=== PATIENT | male | born 1970 | race Caucasian/White ===

== ENCOUNTER 2016-08-02 11:36 | Day surgery (SDC) | payer MEDICARE, OTHER ==
[~2016-08-02] VITALS: Ht 185.4 cm; Wt 125.5 kg
[~2016-08-02 11:36] MED LIST: BAYER CHEWABLE81 MG PO; BUMEX 1 MG TAB1 MG PO; BYSTOLIC2.5 MG PO; CELEXA20 MG PO; COUMADIN7.5 MG PO; CYCLOBENZAPRINE10 MG PO; ELIQUIS5 MG PO; FISH OIL 1,0001 CA1 PO; HEMOCYTE PLUS C1 CAP PO; HYDROCODONE-APA1 TAB PO; METOLAZONE2.5 MG PO; NIASPAN500 MG PO; NORVASC10 MG PO; PRILOSEC20 MG PO; PRINIVIL20 MG PO; REGLAN10 MG PO; RENAGEL800 MG PO; TRIGLIDE160 MG PO; XANAX1 MG PO; ZEBETA5 MG PO
[2016-08-02] MEDS ORDERED: ZESTRIL40 MG PO (12:16)
[2016-08-02 12:24] VITALS: Ht 185.4 cm; Wt 125.5 kg
[2016-08-02 12:51] LABS: EOSINOPHILS 4.9 % (0-7); HEMATOCRIT 33.8 % (42.0-54.0); HEMOGLOBIN 11.4 g/dL (13.5-17.5); IMMATURE GRANULOCYTES 0.2 % (0-5); MCHC 33.7 g/dL (31.0-37.0); MEAN PLATELET VOLUME 10.3 fL (7.4-10.4); MONOCYTES 7.6 % (2-11); NEUTROPHILS 67.3 % (40-80); RBC 3.93 10x6/uL (4.20-6.10); RDW 15.1 % (11.5-14.5); WBC 5.9 10x3/uL (4.8-10.8)
[2016-08-02 12:54] LABS: ANION GAP 14.6 mmol/L (8-16); CALCIUM 9.1 mg/dL (8.5-10.1); CARBON DIOXIDE 29.1 mmol/L (21.0-32.0); CREATININE - SERUM 7.4 mg/dL (0.6-1.3); POTASSIUM - SERUM 3.7 mmol/L (3.5-5.1)
[2016-08-02 13:13] LABS: PLATELET COUNT 146 10x3/uL (130-400)
[2016-08-02 13:21] LABS: APTT 32.3 SECONDS (22.8-39.4); INR 1.06 (0.85-1.17); PROTIME 13.6 SECONDS (11.6-15.0)
[2016-08-02 15:03] LABS: T4 THYROXIN - FREE 0.96 ng/dL (0.76-1.46); THYROID STIMULATING HORMONE 2.34 uIU/mL (0.36-3.74)
--- NOTE | 2016-08-03 18:05 | OP ---
PATIENT NAME: SHILA JUARES MEDICAL RECORD: [id number] :66 [facility] ADMISSION DATE: SURGEON: LUC DAHL MD DATE OF OPERATION: 08/02/2016 PROCEDURE: EGD with biopsy. REFERRING PHYSICIAN: Dr. Ector Johnson. FISHERIES TECHNICIAN: Sd Farley MD. INDICATIONS: Mr. Juares is a pleasant 46-year-old gentleman with a history of obstructive sleep apnea, chronic kidney disease and iron deficiency anemia, who presents for outpatient EGD. He has had symptoms of nausea and belching. He notes the symptoms occur concomitant with his use of Nowata and when he does not take his Nowata, the symptoms uriah. He presents for outpatient EGD. PREMEDICATIONS: Total IV anesthesia (chronic kidney disease, obstructive sleep apnea) propofol 200 mg. INSTRUMENT: Olympus video gastroscope. PROCEDURE AND FINDINGS: After receiving informed consent, Mr. Juares's posterior pharynx was anesthetized with Cetacaine spray. He was placed in left lateral decubitus position, sedated as per anesthesia. After achieving adequate level of sedation, gastroscope was introduced per orally and advanced into the duodenum without difficulty. The esophageal mucosa was without erythema, ulcers, strictures or masses, appeared normal down the GE junction. Small sliding type hiatal hernia was present. Gastric mucosa was notable for mild prepyloric erythema and antral biopsies were obtained to rule out Helicobacter pylori. No lesions were seen in the body of the stomach or in the cardia or fundus. Pylorus was patent and competent. Duodenal mucosa was without erythema or ulcers, appeared normal through the second portion. Gastroscope was then withdrawn. Mr. Juares tolerated the procedure well, no immediate complications. ASSESSMENT: 1. Small sliding type hiatal hernia. 2. Mild gastritis. 3. Symptoms of belching and nausea concomitant with Nowata use, may be experiencing intermittent delaying gastric emptying secondary to narcotics and secondary to pain medication. RECOMMENDATIONS: 1. Check TSH and T4 level. 2. Gastric emptying scan. 3. Continue omeprazole 20 mg twice a day. TRANSINT:[id number] Voice Confirmation ID: [id number] DOCUMENT ID: [id number] OPERATIVE REPORT [id number] SHILA JUARES LUC DAHL MD at 1805 CC: SD FARLEY MD and ECTOR JOHNSON MD [id number] DICTATION DATE: 08/02/16 1335 PROPERTY DEVELOPER: 08/02/16 1408 [facility] [place] 08/02/16 [id number] [place] [address]
== END 2016-08-02 14:30 | disposition home or self-care (01) ==
LOC: D.OPS 11:36
PROVIDERS: Anesthesiology; Internal Medicine Gastroenterology
DX: K44.9 Diaphragmatic hernia without obstruction or gangrene (principal); K29.50 Unspecified chronic gastritis without bleeding; K29.80 Duodenitis without bleeding; G47.33 Obstructive sleep apnea (adult) (pediatric); N18.9 Chronic kidney disease, unspecified; D50.9 Iron deficiency anemia, unspecified; Z79.891 Long term (current) use of opiate analgesic

== ENCOUNTER 2016-08-21 12:51 | Outpatient (CLI) | payer MEDICARE, OTHER ==
[2016-08-02 12:24] VITALS: BMI 36.4
[~2016-08-21 12:51] MED LIST changes: +ZESTRIL40 MG PO
== END 2016-08-21 23:59 | disposition home or self-care (01) ==
LOC: D.NM 12:51
DX: R14.2 Eructation (principal)

== ENCOUNTER 2017-04-10 11:24 | Outpatient (CLI) | payer OTHER, MEDICARE ==
--- NOTE | ~2017-04-10 | HEMODYNAMI ---
PATIENT:SHILA JUARES MEDICAL RECORD: [id number] : 66 LOCATION:[facility] ADMISSION DATE: 04/10/17 Generatedon:04/10/201714:42 Patient name: SHILA JUARES Patient #: [id number] SSN: : 1970 Date of study: 04/10/2017 Page: Of Hemodynamic Procedure Report Patient Data Patient Demographics Procedure consent was obtained First Name: SHILA Gender: Male Last Name: BLANQUITA : 1970 Middle Initial: LESLEY Age: 46 year(s) Patient #: [id number] Race: Unknown Additional ID: [id number] Contact details Address: [address] [address] State: [place] City: [place] Zip code: [address] Admission Admission Data Admission Date: 04/10/2017 Admission Time: 11:24 Procedure Procedure Types Cath Procedure Diagnostic Procedure LHC LHC w/Coronaries PCI Procedure Coronary Stent Initial Miscellaneous Procedures Moderate Sedation up to 15 minutes Procedure Description Procedure Date Procedure Date: 04/10/2017 Procedure Start Time: 14:19 Procedure End Time: 14:39 Procedure Staff Name Function Bryan Juárez RT Monitor Cl Castaneda RN Lunchroom Supervisor Yrn Beltran MD Performing Physician Collins Hsu RN Nurse Meena Baez RT Scrub Procedure Data Cath Procedure Fluoroscopy Diagnostic fluoroscopy Total fluoroscopy Time: 3.3 time: 3.3 min min Diagnostic fluoroscopy Total fluoroscopy dose: dose: 1125 mGy 1125 mGy Contrast Material Contrast Material Type Amount (ml) Isovue 300 103 Entry Location Entry Primary Successful Side Size Upsize Upsize Entry Closure Succes sful Closure Location (Fr) 1 (Fr) 2 (Fr) Remarks Device Remarks Femoral Right 5 Fr 6 Fr artery Short Estimated blood loss: 10 ml Diagnostic catheters Device Type Used For End Catheter Placement Cordis 5Fr JL 4.0 Procedure Catheter (MP) Cordis 5Fr 3DRC Catheter Procedure (MP) Cordis 5Fr Pigtail Procedure Catheter (MP) Procedure Complications No complications Procedure Medications Medication Administration Route Dosage 0.9% NaCl I.V. 100 ml/hr Oxygen NC 2 l/min Heparin Flush Bag added to field 2 bags (1000units/500ml NS) Lidocaine 2% added to field 20 Versed I.V. 2 mg Fentanyl I.V. 100 mcg Versed I.V. 2 mg Fentanyl I.V. 50 mcg Heparin Bolus I.V. 5000 units Integrilin (Bolus I.V. 11.3 ml 2mg/ml) Plavix P.O. 600 mg Integrilin (Bolus wasted 8.7 ml 2mg/ml) Integrilin (Bolus wasted 8.7 ml 2mg/ml) Hemodynamics Rest Heart Rate: 69 (bpm) Pressure Samples Time Site Value (mmHg) Purpose Heart Use Rate(bpm) 14:20 AO 153/94(118) Snapshot 69 14:24 LV 135/6,13 Snapshot 86 14:25 LV 146/9,13 Pullback 85 14:25 AO 152/95(120) Pullback 85 Gradients Valve Time Site 1 Site 2 Mean SEP/DFP Peak To Heart Use (mmHg) (sec/min) Peak Rate (mmHg) (bpm) Aortic 14:25 LV AO 0 85 146/9,13 152/95(120) Calculations Valve P-P Mean Valve Index Valve Source Name Gradient Area Flow (cm2) Aortic 0 0 Snapshots Pre Cath Intra NCS Post Cath Vital Signs Time Heart Resp SPO2 etCO2 NIBP (mmHg) Rhythm Pain Sedation Rate (ipm) (%) (mmHg) Status Level (bpm) 14:00:06 64 14 100 33.2 158/97(129) NSR 0 (11) 10(A) , No pain 14:04:53 63 16 100 29.4 150/102(128) NSR 0 (11) 10(A) , No pain 14:09:38 74 20 100 31.7 151/98(118) NSR 0 (11) 10(A) , No pain 14:14:21 64 19 100 32.4 143/94(117) NSR 0 (11) 10(A) , No pain 14:19:01 78 21 100 25.6 143/94(124) NSR 0 (11) 10(A) , No pain 14:23:44 74 17 100 37.8 148/92(122) NSR 0 (11) 10(A) , No pain 14:28:25 76 15 100 32.5 143/85(122) NSR 0 (11) 10(A) , No pain 14:33:05 73 12 100 36.2 142/93(120) NSR 0 (11) 10(A) , No pain 14:37:48 75 8 100 30.9 138/98(125) NSR 0 (11) 10(A) , No pain Medications Time Medication Route Dose Verified Delivered Reason Notes Effectiveness by by 14:04:42 0.9% NaCl I.V. 100 Collins Collins Per physician ml/hr Shadi Hsu RN RN 14:04:53 Oxygen NC 2 Collins Collins Per physician l/min Shadi Hsu RN RN 14:05:25 Heparin Flush added 2 Collins Collins used for Bag to bags Shadi Hsu procedure (1000units/500ml RN RN NS) 14:05:52 Lidocaine 2% added 20ml Collins Collins for local to vial Loralvaro Hsu anesthetic field SPIVEY RN 14:11:54 Versed I.V. 2 mg Collins Collins for sedation Shadi Hsu RN RN 14:12:06 Fentanyl I.V. 100 Collins Collins for sedation mcg Shadi Hsu RN RN 14:16:03 Versed I.V. 2 mg Collins Collins for sedation Shadi Hsu RN RN 14:18:43 Fentanyl I.V. 50 Collins Collins for sedation mcg Shadi Hsu RN RN 14:28:46 Heparin Bolus I.V. 5000 Collins Collins for units Shadi Hsu anticoagulation RN RN 14:29:07 Integrilin I.V. 11.3 Collins Collins for (Bolus 2mg/ml) ml Shadi Hsu antiplatelet RN RN therapy 14:37:55 Plavix P.O. 600 Collins Collins for mg Loralvaro Hsu antiplatelet RN RN therapy 14:42:07 Integrilin wasted 8.7 Collins Collins for (Bolus 2mg/ml) ml Loralvaro Hsu antiplatelet RN RN therapy 14:42:17 Integrilin wasted 8.7 Collins Collins for (Bolus 2mg/ml) ml Lorigan Shadi antiplatelet RN RN therapy Procedure Log Time Note 13:30:36 Cl Castaneda RN sent for patient. Start room use. 13:48:37 Time tracking: Regular hours 13:48:44 Plan of Care:Hemodynamics will remain stable., Cardiac rhythm will remain stable., Comfort level will be maintained., Respiratory function will remain adequate., Patient/ family verbilizes understanding of procedure., Procedure tolerated without complication., Recovers from procedure without complications.. 13:52:00 Patient received from Pre/Post Procedure Room to CCL 1 Alert and oriented. Tansferred to table in Supine position. 13:52:01 Warm blankets applied, and cookie hugger turned on for patient comfort. 13:52:02 Correct patient and procedure confirmed by team. 13:52:03 Signed procedure consent form obtained from patient. 13:52:04 ECG and BP/O2 sat monitors applied to patient. 13:59:12 Vital chart was started 14:04:22 Baseline sample Acquired. 14:04:26 Rhythm: sinus rhythm 14:04:27 Full Disclosure recording started 14:04:36 H&P Date Dictated: 03/15/2017 Within 30 days and on chart., H&P Addendum completed by physician on day of procedure. (MUST COMPLETE FOR ALL OUTPATIENTS). 14:04:42 0.9% NaCl 100 ml/hr I.V. was administered by Collins Hsu RN; Per physician; 14:04:49 Pre-op teaching completed and patient verbalized understanding. 14:04:49 Pre-procedure instructions explained to patient. 14:04:51 Family in waiting room. 14:04:52 Patient NPO since Midnight. 14:04:53 Oxygen 2 l/min NC was administered by Collins Hsu RN; Per physician; 14:04:54 Is the patient allergic to Iodine/contrast media? No. 14:04:58 Is patient on blood thinner?Yes 14:05:01 ACC The patient was administered the following blood thiners within the last 24 hours: Eliquis 14:05:13 Patient diabetic? No. 14:05:17 Previous problem with sedation/anesthesia? No ? 14:05:18 Snore? Yes 14:05:20 Sleep apnea? Yes 14:05:21 Opens mouth fully? Yes 14:05:21 Deviated septum? No 14:05:22 Sticks out tongue? Yes 14:05:24 Airway obstruction? No ? 14:05:25 Heparin Flush Bag (1000units/500ml NS) 2 bags added to field was administered by Collins Hsu RN; used for procedure; 14:05:27 Dentures? No ? 14:05:30 Pre procedure: right dorsailis pedis pulse 1+ Palpable, but thready & weak; easily obliterated 14:05:45 Pt has a RESERVE LT ARM 14:05:48 Patient pain scale 0/10 ?. 14:05:52 Lidocaine 2% 20ml vial added to field was administered by Collins Hsu RN; for local anesthetic; 14:05:59 IV patent on arrival in right forearm with 0.9% NaCl at [facility]. 14:06:02 Lab results completed and on chart. 14:06:04 Right groin area was prepped with chlora-prep and draped in sterile fashion 14:06:05 Alarms reviewed by R. N. 14:06:06 Sharps counted by scrub and verified by R.N. 14:06:09 Physician paged 14:06:24 Use device set Femoral Dx 14:06:31 Tegaderm 4 x 4 opened to sterile field. 14:06:32 Acist Manifold opened to sterile field. 14:06:32 Acist Hand Control opened to sterile field. 14:06:33 Acist Syringe opened to sterile field. 14:06:34 Medline Cath Pack opened to sterile field. 14:06:34 Bag Decanter opened to sterile field. 14:06:35 St Chele 260cm J .035 wire opened to sterile field. 14:06:35 Terumo 5Fr Kincaid Sheath opened to sterile field. 14:06:37 Diagnostic Infinity 5Fr Multipack catheter opened to sterile field. 14:11:14 --------ALL STOP TIME OUT------ 14:11:15 Final Timeout: patient, procedure, and site verified with staff and physician. All members of the team are in agreement. 14:11:17 Right groin site verified by team. 14:11:20 Physical assessment completed. ASA score P 2 - A patient with mild systemic disease as per Yrn Beltran MD. 14:11:23 Sedation plan: IV Moderate Sedation Versed, Fentanyl 14:11:54 Versed 2 mg I.V. was administered by Collins Hsu RN; for sedation; 14:12:06 Fentanyl 100 mcg I.V. was administered by Collins Hsu RN; for sedation; 14:16:03 Versed 2 mg I.V. was administered by Collins Hsu RN; for sedation; 14:18:43 Fentanyl 50 mcg I.V. was administered by Collins Hsu RN; for sedation; 14:18:58 Procedure started. 14:19:02 Local anesthetic to right femoral artery with Lidocaine 2% by Yrn Beltran MD.INITIAL ACCESS ONLY 14:20:01 A 5 Fr sheath was inserted into the Right Femoral artery 14:20:07 A Cordis 5Fr JL 4.0 Catheter (MP) was advanced over the wire and used for Procedure. 14:21:03 LCA angiography performed. 14:22:00 Catheter removed. 14:22:14 A Cordis 5Fr 3DRC Catheter (MP) was advanced over the wire and used for Procedure. 14:23:11 RCA angiography performed. 14:23:14 Catheter removed. 14:23:29 A Cordis 5Fr Pigtail Catheter (MP) was advanced over the wire and used for Procedure. 14:23:35 TerumSloning BioTechnology 6Fr Kincaid Sheath opened to sterile field. 14:23:36 Jobyduisper J 300cm 0.014 guide wire opened to sterile field. 14:24:45 LV angiography performed. 14:24:46 LV gram done using WITT 14:24:54 EF : 55 % 14:25:03 LV hemodynamics recorded. 14:25:06 Injector settings: Ml/sec: 10, Volume: 20, 14:25:46 Catheter removed. 14:26:11 Medtronic Launcher 6Fr JL 5.0 guide catheter opened to sterile field. 14:26:20 Sheath upsized to a 6 Fr Short. 14:26:36 Study PCI Site: [place] mCirc has 90% stenosis. 14:26:39 ACC Pre-intervention JILLIAN Flow is 3. 14:26:46 6 Fr JL 5 guide catheter was inserted over the wire 14:28:15 Si TVisper wire advanced. 14:28:46 Heparin Bolus 5000 units I.V. was administered by Collins Hsu RN; for anticoagulation; 14:29:07 Integrilin (Bolus 2mg/ml) 11.3 ml I.V. was administered by Collins Hsu RN; for antiplatelet therapy; 14:31:11 Wire advanced across lesion. 14:32:49 Inflation Number: 1 A Medtronic Integrity 3.5 X 15 stent was prepped and advanced across the Mid CX. The stent was deployed at 14 RYNE for 0:45 (min:sec). 14:33:42 ACC Post-intervention JILLIAN Flow is 3. 14:33:43 Stent catheter was removed intact over wire. 14:33:46 Wire removed. 14:33:47 Guide catheter removed. 14:34:09 Cordis 6Fr Exoseal opened to sterile field. 14:34:12 Procedure ended.(Physican Out) 14:34:30 Fluoroscopy time 03.30 minutes. 14:34:34 Fluoroscopy dose: 1125 mGy 14:34:34 Flurop Dose total: 1125 14:34:43 Contrast amount:Isovue 300 103ml. 14:34:46 Sharps counted by scrub and verified by R.N. 14:35:44 Insertion/operative site no bleeding no hematoma. 14:35:48 Post-op/insertion site Right Femoral artery dressed using a 4 x 4 and Tegaderm. 14:35:49 Post Procedure Pulses reassessed and unchanged 14:35:52 Post-procedure physical assessment completed. ASA score P 2 - A patient with mild systemic disease as per Yrn Beltran MD. 14:35:54 Post procedure rhythm: unchanged. 14:35:57 Estimated blood loss: 10 ml 14:35:59 Patient needs reinforcement of post procedure teaching. 14:35:59 Post procedure instruction explained to patient.Patient verbalizes understanding. 14:36:08 Procedure type changed to Cath procedure, Diagnostic procedure, LHC, LHC w/Coronaries, PCI procedure, Coronary Stent Initial, Miscellaneous Procedures, Moderate Sedation up to 15 minutes 14:36:16 Procedure Complication : No complications 14:36:57 Merit BasixCompak Inflation Kit opened to sterile field. 14:37:30 Procedure and supply charges have been captured, reviewed, submitted and are correct. 14:37:55 Plavix 600 mg P.O. was administered by Collins Hsu RN; for antiplatelet therapy; 14:38:57 Vital chart was stopped 14:38:58 See physician's report for complete and final results. 14:39:00 Report given to Pre/Post Procedure Room. 14:39:03 Patient transfered to Pre/Post Procedure Room with Stretcher. 14:39:06 Full Disclosure recording stopped 14:39:06 Procedure ended. 14:39:10 End room use (Document Last) 14:42:07 Integrilin (Bolus 2mg/ml) 8.7 ml wasted was administered by Collins Hsu RN; for antiplatelet therapy; 14:42:17 Integrilin (Bolus 2mg/ml) 8.7 ml wasted was administered by Collins Hsu RN; for antiplatelet therapy; Intervention Summary Intervention Notes Time ActionType Lesion and Equipment Action# Pressure Duration Attributes Used 14:32:49 Place stent Mid CX Medtronic 1 14 00:45 Integrity 3.5 X 15 stent Device Usage Item Name Manufacture Quantity Catalog Hospital Part Current Minimal L ot# / Number Charge Number Stock Stock Serial# Code Tegade 4 3M 1 1626W [id number] 5 x 4 Acist Hand Acist 1 01375 619290 377700 281544 5 Control [employer] Acist Acist 1 87138 900482 039109 926106 5 Manifold [employer] Acist Acist 1 74256 348805 527627 374048 20 Syringe [employer] Bag Microtek 1 2002S 575628 07408 547167 5 Dibspace Inc. Medline Cardinal 1 [id number] 658454 18114 718723 5 Cath Pack Health Terumo 5Fr Terumo 1 [id number] 037045 499969 708001 [address] Chele 1 170086 840634 087164 569269 30 260cm J .035 wire Diagnostic Cardinal 1 [id number] 579605 01444 194019 30 Infinity Health 5Fr Multipack catheter Cordis 5Fr Cardinal 1 [id number] 5 JL 4.0 Health Catheter (MP) Cordis 5Fr Cardinal 1 196662 5 3DRC Health Catheter (MP) Cordis 5Fr Cardinal 1 753863 5 Pigtail Health Catheter (MP) Terumo 6Fr Terumo 1 [id number] 501646 399563 450060 40 Kincaid Sheath Allison Allison 1 [id number] 881607 738862 026404 5 Whisper J Vascular 300cm 0.014 guide wire Medtronic Medtronic 1 [id number] 804400 79460 511544 1 Launcher 6Fr JL 5.0 guide catheter Medtronic Medtronic 1 [id number] 248107 520379 1 0 [id number] Integrity 3.5 X 15 stent Cordis 6Fr Cardinal 1 EX600 821141 612438 931872 10 [facility] 1 [id number] 057053 162990 791814 15 [facility] Medical Inflation Kit Signature Audit [place] Stage Time Signature Unsigned Intra-Procedure 04/10/2017 Bryan Juárez RT(R) 2:39:28 PM RT(R) 04/10/2017 2:40:55 PM Intra-Procedure 04/10/2017 Bryan Juárez 2:42:38 PM RT(R) Signatures Monitor : Bryan Juárez RT Signature : Date : Time : [place] [id number]
[2017-04-10] MEDS ORDERED: RENVELA0.8 GM PO (11:42)
[2017-04-10] MEDS ORDERED: NORVASC10 MG PO (11:43)
[2017-04-10] MEDS ORDERED: RENA-VITE TABL0.8 MG PO (11:44)
[2017-04-10] MEDS ORDERED: EFFEXOR75 MG PO (11:44)
[2017-04-10 11:53] VITALS: BP 160/97; BMI 36.3
[2017-04-10 12:06] LABS: BASOPHILS 0.3 % (0-2); EOSINOPHILS 2.6 % (0-7); HEMATOCRIT 38.9 % (42.0-54.0); HEMOGLOBIN 13.1 g/dL (13.5-17.5); IMMATURE GRANULOCYTES 0.3 % (0-5); LYMPHOCYTES 11.8 % (15-50); MCH 31.2 pg (26.0-34.0); MCHC 33.7 g/dL (31.0-37.0); MCV 92.6 fL (80.0-100.0); MEAN PLATELET VOLUME 11.3 fL (7.4-10.4); MONOCYTES 4.8 % (2-11); NEUTROPHILS 80.2 % (40-80); PLATELET COUNT 167 10x3/uL (130-400); RDW 14.5 % (11.5-14.5); WBC 8.7 10x3/uL (4.8-10.8)
[2017-04-10 12:14] LABS: CALCIUM 8.2 mg/dL (8.5-10.1); CARBON DIOXIDE 23.5 mmol/L (21.0-32.0); CREATININE - SERUM 10.2 mg/dL (0.6-1.3); POTASSIUM - SERUM 4.5 mmol/L (3.5-5.1)
--- NOTE | 2017-04-10 14:50 | NUR ---
1450 RECEIVED PT FROM SOFTWARE QA MANAGER. PT IS ALERT. DRESSING TO RIGHT GROIN IS CDI, AREA IS SOFT AND NONTENDER. PEDAL PULSES PALPABLE. ATRAIL FIBRILLATION ON MONITOR, PT DENIES ANY C/O CHEST PAIN. AT BEDSIDE. PT INSTRUCTED TO KEEP HEAD TO PILLOW AND RIGHT LEG STRAIGHT, HOB TO BE NO HIGHER THAN 30 DEGREES, PT VERBALIZES UNDERSTANDING. CALL LIGHT IN REACH.
--- NOTE | 2017-04-10 15:10 | NUR ---
1510 SANDWICH AND PO FLUIDS SERVED. DRESSING CDI, PT DENIES ANY C/O CHEST PAIN OR NAUSEA. CALL LIGHT IN REACH, NO FAMILY AT BEDSIDE.
--- NOTE | 2017-04-10 15:25 | NUR ---
1525 PT DENIES ANY C/O. DRESSING CDI, PEDAL PULSES PALPABLE. A-FIB WITH RATES IN THE 60'S. DENIES ANY C/O CHEST PAIN OR NAUSEA. CALL LIGHT IN REACH.
--- NOTE | 2017-04-10 15:45 | NUR ---
1545 PT HAS PATY SANDWICH AND PO FLUIDS WITH NO C/O. DRESSING CDI, A-FIB PER MONITOR. DENIES ANY C/O OR NEEDS AT THIS TIME.
[2017-04-10] MEDS ORDERED: PLAVIX75 MG PO (15:56)
--- NOTE | 2017-04-10 16:26 | NUR ---
DRESSING RIGHT GROIN IS CDI, AREA SOFT AND NONTENDER. PEDAL PULSES PALPABLE. DENIES ANY C/O AT THIS TIME. VSS. CALL LIGHT IN REACH.
--- NOTE | 2017-04-10 17:01 | NUR ---
1700 2 NORCO 10MG TABS GIVEN PO PER ORDERS FOR C/O CHRONIC BACK PAIN EXACERBATED BY BEDREST. DRESSING RIGHT GROIN IS CDI, AREA SOFT AND NONTENDER. VSS. A-FIB WITH RATE OF 68. CALL LIGHT IN REACH.
--- NOTE | 2017-04-10 17:45 | NUR ---
1745 DRESSING TO RIGHT GROIN IS CDI, AREA SOFT AND NONTENDER. PULSES PALPABLE. PT STATES PAIN LEVEL DECREASED TO 3/10 AFTER NORCO. VSS, WILL CONTINUE TO MONITOR.
--- NOTE | 2017-04-10 18:21 | NUR ---
HOB ELEVATED, DRESSING TO RIGHT GROIN IS CDI, AREA IS SOFT AND NONTENDER. PT DENIES C/O. AT BEDSIDE.
--- NOTE | 2017-04-10 18:53 | NUR ---
IV HAS BEEN DC'D WITH CATH INTACT. DC INSTRUCTIONS REVIEWED WITH PT AND WHO VERBALIZE UNDERSTANDING. PT DRESSING FOR DC TO HOME. DRESSING RIGHT GROIN IS CDI, AREA IS SOFT AND NONTENDER.
--- NOTE | 2017-04-10 19:07 | NUR ---
1900 PT DRESSED FOR DC TO HOME. PT DENIES ANY C/O AT THIS TIME. PT ESCORTED TO PRIVATE AUTO VIA WC BY NURSE WITH DRIVING HIM HOME.
--- NOTE | 2017-04-12 13:57 | OP ---
PATIENT NAME: SHILA JUARES MEDICAL RECORD: [id number] :66 LOCATION:D.CAT ADMISSION DATE: SURGEON: HERMES HONEYCUTT MD DATE OF OPERATION: 04/10/2017 PROCEDURES: Left heart catheterization, selective coronary angiography, right femoral approach. CATHETERS: A 5-[place] Islander sheath, 5/4 left and right Kandi, 5/4 pig. The procedure was well tolerated and the patient returned to the delgado. Sheath removed. ExoSeal device placed. FINDINGS: Left ventriculography in 30-degree WITT view: Normal wall motion, normal systolic function. CORONARY ANATOMY: LEFT MAIN: Left main is free of disease. LAD: Free of disease in the diagonal system. CIRCUMFLEX: Moderate to large sized circumflex, which has a discrete 90% stenosis in its more mid portion. RIGHT CORONARY ARTERY: Dominant right, free of disease. IMPRESSION: Normal LV systolic function, single-vessel disease involving circumflex. PLAN: Intervention momentarily. DESCRIPTION OF PROCEDURE: A 5-[place] Islander sheath was changed for a 6-[place] Islander sheath. A JL5 guiding catheter provided a good guide catheter support followed by a 300 cm Whisper wire was placed across the tightly occluded circumflex to distal portion of vessel. Stent deployed was a 3.5 x 15 mm Integrity nondrug-eluting stent up to 14 atmospheres for approximately 45 seconds. Final angiography shows excellent resolution 90% stenosis, no significant residual. JILLIAN flow was 3 throughout the procedure. Integrilin was used during the case. Sheath closed with ExoSeal device. Plavix was loaded in the lab. TRANSINT:[id number] Voice Confirmation ID: [id number] DOCUMENT ID: [id number] HERMES HONEYCUTT MD at 1357 CC: [id number] DICTATION DATE: 04/10/17 1442 ANTIQUE FURNITURE RESTORER: 04/10/17 1558 DEP CLI 04/10/17 [place] [id number]
== END 2017-04-10 19:00 | disposition home or self-care (01) ==
LOC: D.CATH 11:24
PROVIDERS: Internal Medicine Interventional Cardiology
DX: R20.9 Unspecified disturbances of skin sensation (principal); N18.6 End stage renal disease; R94.30 Abnormal result of cardiovascular function study, unspecified; I48.91 Unspecified atrial fibrillation; Z01.812 Encounter for preprocedural laboratory examination

== ENCOUNTER 2017-07-08 17:58 | Inpatient (IN) | payer OTHER, MEDICARE ==
[~2017-07-08] VITALS: Ht 185.4 cm; Wt 132.0 kg
--- NOTE | ~2017-07-08 | DS ---
PATIENT:SHILA WHALEN :66 MEDICAL RECORD: [id number] DISCHARGE SUMMARY ADMISSION DATE: 07/08/17 DISCHARGE DATE: 07/10/17 HISTORY OF PRESENT ILLNESS: Mr. Whalen is a 47-year-old white male with end-stage renal disease, chronic dialysis. He has a history of large interdialytic weight gains and apparently missed dialysis on Sunday, developed shortness of breath, had recurrent dialysis on Sunday, continued shortness of breath, and was admitted on Sunday night. HOSPITAL COURSE: The patient was volume overloaded again, underwent dialysis on Sunday night and we reestablished his dry weight in the 129 range. He had recently seen cardiology and they saw the patient this hospitalization and felt that part of his shortness of breath was related to his hypertension. His antihypertensive meds were increased. His echocardiogram revealed an ejection fraction of 35%, otherwise negative. No evidence of pericardial effusion or other major abnormalities. He was ambulatory at the time of discharge and he will be discharged on his current med regime. DISCHARGE DIAGNOSES: 1. Finrw-sy-vqdblio systolic congestive heart failure with known cardiomyopathy. 2. End-stage renal disease, chronic dialysis. 3. Hypertension. 4. Chronic anemia. 5. Noncompliance with fluid restriction. PLAN: The patient will be discharged today. He will be [facility] dialysis tomorrow where I will see him. His remembers his renal diet, fluid restriction. Discharge medications are hydralazine 25 b.i.d., clonidine 0.1 b.i.d., Prinivil or lisinopril 40 mg b.i.d., Norvasc 5 mg b.i.d., Nephro-Ev 1 daily, Protonix 40 mg b.i.d., Renagel 1600 t.i.d., Effexor 75 at bedtime, PhosLo p.r.n., Xanax 1 mg b.i.d., Coreg 6.25 b.i.d., Eliquis 5 mg b.i.d. He will also see cardiology, Dr. Denise in followup. TRANSINT:[id number] Voice Confirmation ID: [id number] DOCUMENT ID: [id number] TROY LOPEZ MD at 0626 CC: [id number] DICTATION DATE: 07/10/17 0841 COMBINATION SAW OPERATOR: 07/10/17 1546 DIS IN 07/10/17 [facility] [address] [id number]
[~2017-07-08 17:58] MED LIST changes: +EFFEXOR75 MG PO; +PLAVIX75 MG PO; +RENA-VITE TABL0.8 MG PO; +RENVELA0.8 GM PO
[2017-07-08 18:26] LABS: BASOPHILS 0.6 % (0-2); EOSINOPHILS 4.2 % (0-7); HEMOGLOBIN 12.2 g/dL (13.5-17.5); IMMATURE GRANULOCYTES 0.3 % (0-5); LYMPHOCYTES 20.4 % (15-50); MCH 29.7 pg (26.0-34.0); MCHC 32.1 g/dL (31.0-37.0); MCV 92.5 fL (80.0-100.0); MEAN PLATELET VOLUME 11.1 fL (7.4-10.4); MONOCYTES 5.6 % (2-11); NEUTROPHILS 68.9 % (40-80); RBC 4.11 10x6/uL (4.20-6.10); RDW 14.1 % (11.5-14.5); WBC 10.8 10x3/uL (4.8-10.8)
[2017-07-08 18:38] LABS: PLATELET COUNT 234 10x3/uL (130-400)
[2017-07-08 18:39] LABS: ANION GAP 20.6 mmol/L (8-16); BILIRUBIN - TOTAL 0.44 mg/dL (0.2-1.3); CARBON DIOXIDE 21.7 mmol/L (21.0-32.0); POTASSIUM - SERUM 5.3 mmol/L (3.5-5.1); PROTEIN - SERUM 7.3 g/dL (6.4-8.2)
[2017-07-08 20:30] VITALS: BP 183/117
[2017-07-08 20:32] VITALS: BP 185/108; BMI 38.3
[2017-07-08] MEDS ORDERED: COREG6.25 MG PO (21:03)
[2017-07-08 21:30] VITALS: BP 180/114
[2017-07-08 22:45] VITALS: BP 158/103
[2017-07-08 23:45] VITALS: BP 153/94
[2017-07-09] VITALS (14 sets, daily range): BP systolic 143–195; BP diastolic 80–115; Ht 185.4 cm; Wt 132.0 kg
[2017-07-09 03:52] LABS: BASOPHILS 0.2 % (0-2); EOSINOPHILS 0.3 % (0-7); HEMATOCRIT 34.1 % (42.0-54.0); IMMATURE GRANULOCYTES 0.2 % (0-5); LYMPHOCYTES 4.7 % (15-50); MCH 29.1 pg (26.0-34.0); MCHC 32.3 g/dL (31.0-37.0); MEAN PLATELET VOLUME 10.8 fL (7.4-10.4); MONOCYTES 0.5 % (2-11); NEUTROPHILS 94.1 % (40-80); RBC 3.78 10x6/uL (4.20-6.10)
[2017-07-09 04:08] LABS: ANION GAP 19.5 mmol/L (8-16); CALCIUM 8.8 mg/dL (8.5-10.1); CARBON DIOXIDE 25.5 mmol/L (21.0-32.0); CREATININE - SERUM 8.3 mg/dL (0.6-1.3)
[2017-07-09 04:11] LABS: MCV 90.2 fL (80.0-100.0); PLATELET COUNT 181 10x3/uL (130-400); WBC 5.7 10x3/uL (4.8-10.8)
[2017-07-10] VITALS: BP 156/95
[2017-07-10 05:39] LABS: BASOPHILS 0.3 % (0-2); EOSINOPHILS 2.3 % (0-7); HEMATOCRIT 30.5 % (42.0-54.0); HEMOGLOBIN 9.7 g/dL (13.5-17.5); IMMATURE GRANULOCYTES 0.3 % (0-5); LYMPHOCYTES 19.6 % (15-50); MCH 29.4 pg (26.0-34.0); MCHC 31.8 g/dL (31.0-37.0); MONOCYTES 7.3 % (2-11); NEUTROPHILS 70.2 % (40-80); PLATELET COUNT 167 10x3/uL (130-400); RDW 14.3 % (11.5-14.5)
[2017-07-10 05:44] LABS: ANION GAP 20.9 mmol/L (8-16); CALCIUM 7.7 mg/dL (8.5-10.1); CARBON DIOXIDE 23.5 mmol/L (21.0-32.0); POTASSIUM - SERUM 5.4 mmol/L (3.5-5.1)
[2017-07-10 05:46] LABS: CREATININE - SERUM 11.7 mg/dL (0.6-1.3)
[2017-07-10 05:48] LABS: MCV 92.4 fL (80.0-100.0)
[2017-07-10 08:43] VITALS: BP 111/62
[2017-07-10] MEDS ORDERED: ELIQUIS5 MG PO (12:59)
== END 2017-07-10 13:29 | disposition home or self-care (01) | DRG 291 ==
LOC: D.ER 17:58 → D.ICU 18:37 → D.M2 07-09 13:37
PROVIDERS: Emergency Medicine; Internal Medicine Nephrology
PROC: 5A1D70Z Performance of Urinary Filtration, Intermittent, Less than 6 Hours Per Day (ICD-10-PCS; principal; 2017-07-08)
DX: I13.2 Hypertensive heart and chronic kidney disease with heart failure and with stage 5 chronic kidney disease, or end stage renal disease (principal); I50.23 Acute on chronic systolic (congestive) heart failure; N18.6 End stage renal disease; E11.22 Type 2 diabetes mellitus with diabetic chronic kidney disease; Z99.2 Dependence on renal dialysis; Z91.19 Patient's noncompliance with other medical treatment and regimen; D63.8 Anemia in other chronic diseases classified elsewhere; N13.9 Obstructive and reflux uropathy, unspecified; I42.9 Cardiomyopathy, unspecified; Z72.0 Tobacco use

== ENCOUNTER → 2017-11-05 10:27 | Outpatient (CLI) | payer MEDICARE, BC ==
[2017-07-09 10:21] VITALS: BMI 37.3
[~2017-11-05 10:27] MED LIST changes: +COREG6.25 MG PO
== END | disposition home or self-care (01) ==
LOC: D.RAD 10:27
DX: R06.02 Shortness of breath (principal)

== ENCOUNTER 2017-12-03 01:07 | Emergency (ER) | payer MEDICARE, BC ==
[~2017-12-03] VITALS: Ht 185.4 cm; Wt 118.2 kg
[2017-12-03 01:14] VITALS: Ht 185.4 cm; Wt 118.2 kg
[2017-12-03] MEDS ORDERED: RENA-VITE TABL0.8 MG PO (01:19)
[2017-12-03] MEDS ORDERED: ZEBETA5 MG PO (01:20)
[2017-12-03] MEDS ORDERED: CIPRO250 MG PO (01:22)
[2017-12-03 02:05] VITALS: BP 190/116
== END 2017-12-03 02:07 | disposition home or self-care (01) ==
LOC: D.ER 01:07
DX: N45.1 Epididymitis (principal); I10 Essential (primary) hypertension; I12.9 Hypertensive chronic kidney disease with stage 1 through stage 4 chronic kidney disease, or unspecified chronic kidney disease; N18.9 Chronic kidney disease, unspecified; Z86.79 Personal history of other diseases of the circulatory system

== ENCOUNTER → 2018-02-01 12:44 | Outpatient (CLI) | payer MEDICARE, BC ==
[2017-12-03 01:14] VITALS: BMI 34.3
[~2018-02-01 12:44] MED LIST changes: +CIPRO250 MG PO
[2018-02-01 16:20] LABS: BASOPHILS 0.3 % (0-2); EOSINOPHILS 0.5 % (0-7); HEMATOCRIT 31.9 % (42.0-54.0); HEMOGLOBIN 10.6 g/dL (13.5-17.5); IMMATURE GRANULOCYTES 0.1 % (0-5); LYMPHOCYTES 14.8 % (15-50); MCH 30.2 pg (26.0-34.0); MCHC 33.2 g/dL (31.0-37.0); MCV 90.9 fL (80.0-100.0); MEAN PLATELET VOLUME 12.1 fL (7.4-10.4); NEUTROPHILS 78.3 % (40-80); PLATELET COUNT 167 10x3/uL (130-400); RBC 3.51 10x6/uL (4.20-6.10); RDW 13.5 % (11.5-14.5); WBC 7.5 10x3/uL (4.8-10.8)
[2018-02-01 17:41] LABS: ERYTHROCYTE SEDIMENTATION RATE 2 mm/hr (0-15)
[2018-02-02 06:14] LABS: RAPID PLASMA REAGIN Non Reactive (Non Reactive)
[2018-02-04 16:12] LABS: LYSOZYME 15.8 ug/mL (3.0-12.8)
== END | disposition home or self-care (01) ==
LOC: D.LABREF 12:44
PROVIDERS: Ophthalmology
DX: H15.099 Other scleritis, unspecified eye (principal)

== ENCOUNTER 2018-10-25 12:04 | Day surgery (SDC) | payer MEDICARE, BC ==
[2017-12-03 01:14] VITALS: BMI 34.3
[2018-10-25 12:45] LABS: HEMATOCRIT 33.5 % (42.0-54.0); HEMOGLOBIN 11.4 g/dL (13.5-17.5); MCH 32.2 pg (26.0-34.0); MCV 94.6 fL (80.0-100.0); MEAN PLATELET VOLUME 10.9 fL (7.4-10.4); RBC 3.54 10x6/uL (4.20-6.10); RDW 13.4 % (11.5-14.5); WBC 5.6 10x3/uL (4.8-10.8)
[2018-10-25 12:50] LABS: INR 1.13 (0.85-1.17)
[2018-10-25 12:51] LABS: ANION GAP 16.8 mmol/L (8-16); CALCIUM 8.9 mg/dL (8.5-10.1); CREATININE - SERUM 5.3 mg/dL (0.6-1.3); POTASSIUM - SERUM 3.8 mmol/L (3.5-5.1)
[2018-10-25] MEDS ORDERED: ROXICODONE15 MG PO (13:14)
[2018-10-25] MEDS ORDERED: ZOFRAN4 MG PO (13:16)
--- NOTE | 2018-10-25 16:40 | NUR ---
RIGHT HAND PIV DC'D WITH TIP INTACT. PATIENT DRESSING IN PERSONAL CLOTHING. DISCHARGE INSTRUCTIONS REVIEWED WITH PATIENT AND SPOUSE. [id number] DISCHARGED HOME VIA WHEELCHAIR TO PRIVATE VEHICLE WITH SPOUSE
--- NOTE | 2018-10-28 12:39 | OP ---
PATIENT NAME: SHILA JUARES MEDICAL RECORD: [id number] :66 LOCATION:D[facility] ADMISSION DATE: SURGEON: LUC DAHL MD DATE OF OPERATION: 10/25/2018 PROCEDURE: Colonoscopy with biopsy and polypectomy. REFERRING PHYSICIAN: Dr. Ector Johnson. LEAD MASON TENDER: Troy Herrera MD INDICATIONS: Mr. Juares is a delightful 48-year-old gentleman with a history of end-stage renal disease and recently diagnosed prostate cancer. He is scheduled to have prostate surgery at [facility] on 10/30/2018. He has been followed by the [facility] kidney transplant team. He has a history of chronic atrial fibrillation and is on Eliquis. He has had some intermittent hematochezia. His last colonoscopy was with Dr. Donnelly 2012 with findings showing grade II internal hemorrhoids, mild diverticulosis, and a 4 mm hyperplastic colon polyp. He presents for outpatient colonoscopy. PREMEDICATIONS: Total IV anesthesia (ASA 4, end-stage renal disease on hemodialysis) Propofol 750 mg. INSTRUMENT: Olympus video colonoscope, pediatric. PROCEDURE AND FINDINGS: After informed consent, Mr. Juares was placed in left lateral decubitus position, sedated as per anesthesia. After achieving adequate level of sedation, distal rectal exam was performed that showed no external hemorrhoidal tags, fissures or fistulas, slightly decreased sphincter tone, no palpable rectal masses. Colonoscope was introduced per rectally and advanced to the cecum with mild difficulty. He had a long and redundant colon. The cecum, IC valve, and appendiceal orifice were identified and appeared normal. As the colonoscope was withdrawn, careful inspection was made of the loo of the colon. Overall mucosa had normal vascular and fold pattern. In the mid ascending colon was a 0.3-0.5 cm sessile polyp that was removed with hot biopsy forceps technique. In the descending colon was a 1.5-2 cm lipomatous appearing structure nonobstructive that was biopsied. There were multiple diverticula seen in the sigmoid colon. Retroflexion in the rectum showed mild internal hemorrhoids (fair prep was present). Mr. Juares tolerated procedure well, no immediate complications. ASSESSMENT: 1. Small mid ascending colon polyp status post polypectomy. 2. Nonobstructive lipomas in the descending colon status post biopsy. 3. Mild sigmoid diverticulosis coli. 4. Mild internal hemorrhoids (source of hematochezia). RECOMMENDATIONS: 1. Follow up histopathology. 2. Avoid aspirin, nonsteroidal anti-inflammatory drugs, and STEWARD-2 inhibitors 14 days post polypectomy. 3. Resume Eliquis. TRANSINT:[id number] Voice Confirmation ID: [id number] DOCUMENT ID: [id number] OPERATIVE REPORT [id number] SHILA JUARES TERRI MD at 1239 CC: TROY HERRERA MD and ECTOR JOHNSON [id number] DICTATION DATE: 10/25/18 1525 CREMATORY OPERATOR: 10/25/18 1625 [facility] SDC 10/25/18 [id number] [place] [address]
== END 2018-10-25 16:45 | disposition home or self-care (01) ==
LOC: D.OPS 12:04
PROVIDERS: Anesthesiology; ATTEND Internal Medicine Gastroenterology
DX: D12.2 Benign neoplasm of ascending colon (principal); D17.79 Benign lipomatous neoplasm of other sites; K64.8 Other hemorrhoids; K57.30 Diverticulosis of large intestine without perforation or abscess without bleeding; N18.6 End stage renal disease; C61 Malignant neoplasm of prostate; I48.91 Unspecified atrial fibrillation; Z79.01 Long term (current) use of anticoagulants; Z01.812 Encounter for preprocedural laboratory examination

== ENCOUNTER → 2019-03-18 09:37 | Outpatient (CLI) | payer MEDICARE, BC ==
[2017-12-03 01:14] VITALS: BMI 34.3
[~2019-03-18 09:37] MED LIST changes: +ROXICODONE15 MG PO; +ZOFRAN4 MG PO
--- NOTE | 2019-03-21 12:40 | EC ---
PATIENT:SHILA JUARES DATE OF SERVICE: 03/18/19 SEX: M MEDICAL RECORD: [id number] DATE OF : 66 [facility] AGE OF PATIENT: 48 ADMISSION DATE: 03/18/19 REFERRING PHYSICIAN: INTERPRETING PHYSICIAN: HERMES HONEYCUTT MD ECHOCARDIOGRAM REPORT ECHO CHARGES 4 ECHO COMPLETE Date: 03/18/19 CLINICAL DIAGNOSIS: HTN HX CAD/AFIB/MITRAL REGURG ECHOCARDIOGRAPHIC MEASUREMENTS (adult normal given) AC root (d.<3.7cm) 3.9 cm LV Septum d (<1.2 cm> 1.7 cm Valve Excursion 2.2 cm LV Septum (systole) 2.1 cm Left Atria (s.<4.0cm> 6.3 cm LVPW d(<1.2cm) 1.9 cm RV (d.<2.3cm) 4.9 cm LVPW (sytole) 2.1 cm LV diastole(<5.6CM) 6.6 cm MV E-F(>70mm/sec) cm LV systole 4.5 cm LVOT Diameter 2.4 cm MV exc.(>10mm) 1.7 cm Est.ejection fraction (50-75%) % DOPPLER: LVIT cm/sec A 38.0 cm/sec E 98.0 cm/sec LA cm/sec RVSP 39 mmHg LVOT 143 cm/sec AOP1/2T m/s Asc. Ao 179 cm/sec RVOT 86 cm/sec RA cm/sec PA 119 cm/sec AV Gradient Peak 12.87mmHg AV Mean 6.30 mmHg AV Area 3.5 cm MV Gradient Peak 9.07 mmHg MV Mean 2.82 mmHg MV Area cm COMMENTS: Audit Spec: 2 JAMES WELLINGTON Precision Agronomist: 3 Dr. Beltran TAPE# PACS Pericardial Effusion N DATE OF SERVICE: Adequate 2D, color flow, spectral Doppler, and M-mode. LVH is present. LV internal dimension is dilated. LV wall motion is normal. EF is greater or equal to 55%. Aortic valve is tricuspid. No evidence of stenosis by Doppler interrogation. Left atrium is dilated at 6.3 cm. Mitral valve shows no prolapse. Mild MR. Right-sided chambers grossly normal. Mild TR. TRANSINT:[id number] Voice Confirmation ID: [id number] DOCUMENT ID: [id number] ECHOCARDIOGRAM REPORT [id number] SHILA JUARES GREGORY A MD at 1240 CC: [id number] DICTATION DATE: 03/20/19 1311 MEDICAL EDITOR: 03/20/19 1356 DEP CLI 03/18/19 [id number] [place] [address]
== END | disposition home or self-care (01) ==
LOC: D.HCCECHO 09:37 → D.HCCARDIO 10:00 → D.HCCECHO 10:00
PROVIDERS: ATTEND Internal Medicine Interventional Cardiology
DX: I10 Essential (primary) hypertension (principal)

== ENCOUNTER 2019-04-13 15:31 | Inpatient (IN) | payer MEDICARE, BC ==
[~2019-04-13] VITALS: Ht 180.3 cm; Wt 115.2 kg
[2019-04-13 16:19] LABS: BASOPHILS 0.6 % (0-2); EOSINOPHILS 1.7 % (0-7); HEMATOCRIT 36.1 % (42.0-54.0); HEMOGLOBIN 11.9 g/dL (13.5-17.5); IMMATURE GRANULOCYTES 0.5 % (0-5); LYMPHOCYTES 10.1 % (15-50); MCH 30.1 pg (26.0-34.0); MCV 91.2 fL (80.0-100.0); MEAN PLATELET VOLUME 11.3 fL (7.4-10.4); MONOCYTES 7.2 % (2-11); NEUTROPHILS 79.9 % (40-80); PLATELET COUNT 229 10x3/uL (130-400); RBC 3.96 10x6/uL (4.20-6.10); WBC 8.6 10x3/uL (4.8-10.8)
[2019-04-13 16:27] LABS: INR 1.32 (0.85-1.17); PROTIME 15.9 SECONDS (11.6-15.0)
[2019-04-13 16:28] LABS: APTT 34.4 SECONDS (22.8-39.4)
[2019-04-13] MEDS ORDERED: OXYCODONE HCL5 M1 PO (16:35)
[2019-04-13 16:38] LABS: ALBUMIN 3.8 g/dL (3.4-5.0); ANION GAP 16.3 mmol/L (8-16); BILIRUBIN - TOTAL 0.65 mg/dL (0.2-1.3); CALCIUM 7.8 mg/dL (8.5-10.1); CARBON DIOXIDE 26.1 mmol/L (21.0-32.0); PROTEIN - SERUM 7.1 g/dL (6.4-8.2)
[2019-04-13 16:39] LABS: POTASSIUM - SERUM 6.4 mmol/L (3.5-5.1)
--- NOTE | 2019-04-13 16:41 | NUR ---
CRITICAL POTASSIUM 6.4; TITI LESTER, INFORMED.
[2019-04-13 17:30] VITALS: BP 166/97
[2019-04-13 19:18] LABS: CREATINE KINASE 223 UL (21-232)
--- NOTE | 2019-04-13 19:37 | NUR ---
190 PT DIPHERETIC, FSBS 39 DR RYAN WITH PT, 1 AMP D50 GIVE, SANDWHICH GIVEN AND 100 PERCENT CONSUMED,P 90 B/P 146/84, 193 FSBS 99, DENIES NEEDS, AWAKE, ALERT, TALATIVE THROUGHOUT NO OTHER S/S NOTED, CON'T TO MONITOR.
[2019-04-13 19:48] VITALS: BP 146/84
[2019-04-13] MEDS ORDERED: BUMEX2 MG PO (21:50)
[2019-04-13] MEDS ORDERED: CATAPRES0.2 MG PO (21:51)
[2019-04-13] MEDS ORDERED: HYDRALAZINE HCL50 MG PO (21:53)
[2019-04-13] MEDS ORDERED: SENNA LAXATIVE8.6 MG PO (21:55)
[2019-04-13] MEDS ORDERED: SENSIPAR30 MG PO (21:56)
[2019-04-13] MEDS ORDERED: XANAX1 MG PO (21:57)
[2019-04-13 21:59] VITALS: BP 169/92; BMI 35.5
--- NOTE | 2019-04-13 22:03 | NUR ---
ARRIVED TO ROOM 1205 VIA ED STAFF AND WHEEL CHAIR, SPOUSE AT SIDE, IV TO RIGHT FOREARM IS PATENT WITH D10 AT 50 INFUSING VIA PUMP. DISCOLORATIONS NOTED TO RIGHT HIP AREA RELATED TO RECENT FALL. FISTULA TO LEFT FOREARM NOTED. COMPLAINTS OF PAIN OF 8-9 OF 10, PAIN MEDICATION GIVEN PER ORDERS. ABLE TO VOICE ALL NEEDS. INSTRUCTED OF LOCATION OF ITEMS IN ROOM. VERBALLY UNDERSTOOD. WILL NOTE ANY CHANGE.
[2019-04-13 23:46] VITALS: BP 173/106
--- NOTE | 2019-04-14 00:12 | NUR ---
ROUTINE VITALS HAD BP OF 173/106, ALEX SUTTON OF NEPHROLOGY CONTACTED WITH ORDERS TO RESTART HYDRALAZINE 50MG TID AND CLONODINE 0.2MG [id number] PRN NOW. RETAIL BAKERY MANAGER NOTIFIED OF REQUEST FOR MEDICATION.
[2019-04-14 05:10] VITALS: BP 154/94
[2019-04-14 08:00] VITALS: BP 135/72
--- NOTE | 2019-04-14 09:15 | NUR ---
DR SIEGEL IN ROOM. NEW ORDERS RECEIVED.
--- NOTE | 2019-04-14 10:45 | NUR ---
PATIENT IS STABLE AND VSS. PATIENT TO DIALYSIS VIA HOPSITAL BED AND HOSPITAL PERSONNEL.
[2019-04-14 14:59] VITALS: Ht 180.3 cm; Wt 115.2 kg
--- NOTE | 2019-04-14 16:45 | NUR ---
PATIENT RETURNED FROM DIALYSIS VIA HOSPITAL BED AND HOSPITAL PERSONNEL. PATIENT IS STABLE AND VSS. PATIENT DENIES ANY NEEDS OR PAIN. AT BS. WILL CONTINUE WITH PLAN OF CARE. SR UP X 2 BED IN LOW POSITION AND CALL LIGHT IN REACH.
[2019-04-14 17:12] VITALS: BP 123/62
[2019-04-14 19:36] VITALS: BP 121/73
--- NOTE | 2019-04-14 19:36 | NUR ---
PATIENT RESTING IN BED WITH NO S/S OF DISTRESS AND DENIES NEEDS AT THIS TIME. VSS. PATIENT REFUSED HS DOSE OF APRESOLINE. ENCOURAGED THE PATIENT TO CALL IF HE HAS NEEDS. WILL CONTINUE TO MONITOR.
--- NOTE | 2019-04-14 20:44 | NUR ---
PATIENT RESTING IN BED WITH C/O 6/10 PAIN. ADMINISTERED MOTRIN SCHEDULED. PATIENT STATED HIS PAIN IS MUCH BETTER CONTROLLED TONIGHT THAN IT WAS ON ADMISSION. PATIENT DENIES OTHER NEEDS AT THIS TIME. BED IN LOWEST POSITION AND CALL LIGHT WITHIN REACH. ENCOURAGED THE PATIENT TO CALL IF HE HAS NEEDS.
[2019-04-14 23:53] VITALS: BP 136/75
[2019-04-15 03:36] VITALS: BP 135/83
--- NOTE | 2019-04-15 07:57 | NUR ---
PT CAME UP TO NURSES STATION ASKING WHEN HIS DISCHARGE PAPERWORK WILL BE FINISHED. ADVISED PT THAT THERE IS NO OFFICIAL DISCHARGE ORDER IN THE COMPUTER YET. PT VERBALIZED UNDERSTANDING BUT STATES,"I ALREADY TOOK OUT MY IV. I AM READY TO LEAVE." WHEN NURSE ASKED PT WHY HE TOOK HIS OWN IV OUT HE STATED, "I WAS TIRED OF IT BEING IN THERE." ADVISED PT THAT HE SHOULD NOT HAVE REMOVED HIS OWN IV. NURSE WOULD HAVE GLADLY TAKEN OUT HIS IV IF IT WAS BOTHERING HIM THAT BADLY. WHEN ASKED IF HE THREW THE IV IN THE TRASH PT RESPONDED, "NO. I PUT IT IN THE BIOHAZARD BIN." ADVISED PT THAT THERE IS NO WAY FOR NURSE TO LOOK AND ENSURE THE CATHETER TIP WAS INTACT UPON REMOVAL NOW. ADVISED PT THAT NURSE WOULD LET HIM NO WHEN THE OFFICAL DISCHARGE ORDER WAS IN THE COMPUTER. PT WALKED BACK TO HIS ROOM.
[2019-04-15 08:43] LABS: ANION GAP 15.1 mmol/L (8-16); CALCIUM 8.5 mg/dL (8.5-10.1); CARBON DIOXIDE 31.1 mmol/L (21.0-32.0); CREATININE - SERUM 10.2 mg/dL (0.6-1.3); POTASSIUM - SERUM 5.2 mmol/L (3.5-5.1)
--- NOTE | 2019-04-15 10:56 | NUR ---
DISCHARGE INSTRUCTIONS REVIEWED WITH PT AND ALL QUESTIONS ANSWERED. ASSISTED PT TO FRONT OF HOSPITAL WHERE HE LEFT WITH SPOUSE
== END 2019-04-15 11:12 | disposition home or self-care (01) | DRG 640 ==
LOC: D.ER 15:31 → D.M3 20:07 → OBSVTIME 20:07 → D.M3 04-14 13:35
PROVIDERS: Emergency Medicine; Internal Medicine Nephrology; ADMIT Internal Medicine; ATTEND Internal Medicine
PROC: 5A1D70Z Performance of Urinary Filtration, Intermittent, Less than 6 Hours Per Day (ICD-10-PCS; principal; 2019-04-14)
DX: E87.5 Hyperkalemia (principal); N18.6 End stage renal disease; I48.20 Chronic atrial fibrillation, unspecified; I13.2 Hypertensive heart and chronic kidney disease with heart failure and with stage 5 chronic kidney disease, or end stage renal disease; S30.0XXA Contusion of lower back and pelvis, initial encounter; E87.1 Hypo-osmolality and hyponatremia; W01.0XXA Fall on same level from slipping, tripping and stumbling without subsequent striking against object, initial encounter; I25.10 Atherosclerotic heart disease of native coronary artery without angina pectoris; I50.9 Heart failure, unspecified

== ENCOUNTER → 2019-04-21 10:50 | Outpatient (CLI) | payer MEDICARE, BC ==
[2019-04-14 14:59] VITALS: BMI 35.4
[~2019-04-21 10:50] MED LIST changes: +BUMEX2 MG PO; +CATAPRES0.2 MG PO; +HYDRALAZINE HCL50 MG PO; +OXYCODONE HCL5 M1 PO; +SENNA LAXATIVE8.6 MG PO; +SENSIPAR30 MG PO
== END | disposition home or self-care (01) ==
LOC: D.US 10:50
PROVIDERS: ATTEND Internal Medicine Nephrology
DX: R60.0 Localized edema (principal)

== ENCOUNTER 2019-06-01 15:59 | Inpatient (IN) | payer MEDICARE, BC ==
[~2019-06-01] VITALS: Ht 180.3 cm; Wt 115.7 kg
[2019-06-01 16:35] LABS: APPEARANCE CLEAR (CLEAR); COLOR STRAW (YELLOW); NITRITE NEGATIVE (NEGATIVE); SPECIFIC GRAVITY 1.005 (1.005-1.020)
[2019-06-01 16:36] LABS: BILIRUBIN NEGATIVE (NEGATIVE); GLUCOSE 50 mg/dL (NEGATIVE); KETONE NEGATIVE (NEGATIVE); PROTEIN TRACE mg/dL (NEGATIVE); UROBILINOGEN NORMAL (NORMAL)
[2019-06-01 16:41] LABS: BASOPHILS 0.5 % (0-2); EOSINOPHILS 4.1 % (0-7); HEMATOCRIT 31.4 % (42.0-54.0); LYMPHOCYTES 16.4 % (15-50); MCH 29.9 pg (26.0-34.0); MCHC 31.8 g/dL (31.0-37.0); MCV 93.7 fL (80.0-100.0); MONOCYTES 5.3 % (2-11); NEUTROPHILS 73.7 % (40-80); RBC 3.35 10x6/uL (4.20-6.10); WBC 5.8 10x3/uL (4.8-10.8)
[2019-06-01 16:42] LABS: PLATELET COUNT 144 10x3/uL (130-400)
[2019-06-01 16:58] LABS: ANION GAP 16.2 mmol/L (8-16); CALCIUM 8.3 mg/dL (8.5-10.1); CARBON DIOXIDE 28.2 mmol/L (21.0-32.0); CREATININE - SERUM 10.5 mg/dL (0.6-1.3); POTASSIUM - SERUM 5.4 mmol/L (3.5-5.1)
[2019-06-01 17:03] LABS: ALBUMIN 3.3 g/dL (3.4-5.0); BILIRUBIN - TOTAL 0.51 mg/dL (0.2-1.3); PROTEIN - SERUM 6.6 g/dL (6.4-8.2)
[2019-06-01 23:21] VITALS: BP 196/82; BMI 35.6
[2019-06-02 00:28] VITALS: BP 123/81
--- NOTE | 2019-06-02 03:28 | NUR ---
I have reviewed this patient and I concur with the Shift Assessment completed by the Licensed Practical Nurse today this shift.
[2019-06-02 03:57] LABS: BASOPHILS 0.5 % (0-2); EOSINOPHILS 5.2 % (0-7); HEMATOCRIT 27.5 % (42.0-54.0); IMMATURE GRANULOCYTES 0.2 % (0-5); LYMPHOCYTES 20.4 % (15-50); MCH 30.5 pg (26.0-34.0); MCHC 32.7 g/dL (31.0-37.0); MCV 93.2 fL (80.0-100.0); MEAN PLATELET VOLUME 11.3 fL (7.4-10.4); MONOCYTES 7.3 % (2-11); NEUTROPHILS 66.4 % (40-80); PLATELET COUNT 124 10x3/uL (130-400); RBC 2.95 10x6/uL (4.20-6.10); RDW 12.9 % (11.5-14.5)
[2019-06-02 04:21] LABS: ANION GAP 14.4 mmol/L (8-16); CALCIUM 8.3 mg/dL (8.5-10.1); CARBON DIOXIDE 28.8 mmol/L (21.0-32.0); CREATININE - SERUM 11.6 mg/dL (0.6-1.3); POTASSIUM - SERUM 5.2 mmol/L (3.5-5.1)
[2019-06-02 04:23] LABS: WBC 4.2 10x3/uL (4.8-10.8)
[2019-06-02 04:30] VITALS: BP 125/74
--- NOTE | 2019-06-02 09:52 | NUR ---
PT TAKEN TO DIALYSIS VIA WC.
[2019-06-02 10:27] VITALS: BP 142/84
--- NOTE | 2019-06-02 14:03 | NUR ---
SPOKE WITH DIALYSIS THEY STATED THEY REMOVED A LITTLE OVER 6L.
--- NOTE | 2019-06-02 14:36 | NUR ---
PT WANTED TO WALK UP FROM DIALYSIS. PT BACK IN ROOM AT 2106. PT STATES HE HAS NO FURTHER NEEDS AT THIS TIME. BED LOW. CL IN REACH.
[2019-06-02 14:44] VITALS: BMI 35.5
[2019-06-02 14:51] VITALS: Ht 180.3 cm; Wt 115.7 kg
--- NOTE | 2019-06-02 15:40 | NUR ---
I have reviewed this patient and I concur with the Shift Assessment completed by the Licensed Practical Nurse today this shift.
[2019-06-02 17:00] VITALS: BP 143/89
--- NOTE | 2019-06-02 19:05 | NUR ---
PT ASLEEP BUT AROUSES WITH VOICE AND DENIES NEEDS AT THIS TIME CALL LIOGHT AND WOOL BUYER BUTTON IS IN PLACE BED LOW AND LOCKED SR X2
[2019-06-02 20:00] VITALS: BP 128/78
[2019-06-03] VITALS: BP 120/73
--- NOTE | 2019-06-03 02:07 | NUR ---
I have reviewed this patient and I concur with the Shift Assessment completed by the Licensed Practical Nurse today this shift.
[2019-06-03 04:00] VITALS: BP 107/66
[2019-06-03 06:22] LABS: BASOPHILS 0.7 % (0-2); EOSINOPHILS 5.3 % (0-7); HEMATOCRIT 29.6 % (42.0-54.0); HEMOGLOBIN 9.5 g/dL (13.5-17.5); IMMATURE GRANULOCYTES 0.2 % (0-5); LYMPHOCYTES 20.1 % (15-50); MCHC 32.1 g/dL (31.0-37.0); MCV 93.4 fL (80.0-100.0); MEAN PLATELET VOLUME 11.6 fL (7.4-10.4); MONOCYTES 10.2 % (2-11); NEUTROPHILS 63.5 % (40-80); RBC 3.17 10x6/uL (4.20-6.10); RDW 12.9 % (11.5-14.5); WBC 4.3 10x3/uL (4.8-10.8)
[2019-06-03 06:32] LABS: PLATELET COUNT 156 10x3/uL (130-400)
[2019-06-03 06:35] LABS: ANION GAP 16.3 mmol/L (8-16); CARBON DIOXIDE 26.5 mmol/L (21.0-32.0); CREATININE - SERUM 9.7 mg/dL (0.6-1.3); PHOSPHOROUS 6.7 mg/dL (2.5-4.9); POTASSIUM - SERUM 4.8 mmol/L (3.5-5.1)
[2019-06-03 10:57] VITALS: BP 132/81
[2019-06-03 12:00] VITALS: BP 138/80
--- NOTE | 2019-06-03 18:30 | NUR ---
REVIEWED ASSESSMENT BY GOLF CART ATTENDANT AND I CONCUR.
[2019-06-03 18:32] VITALS: BP 126/81
--- NOTE | 2019-06-03 19:02 | NUR ---
AWAKE AND ALERT ATTENDED TO NEEDS AT THIS TINME BED LOW AND LOCKED AND SRX2 PT DOES HAVE CALL LIGHT IV ACCESS TO RT HAND IS PATENT SKIN WARM AND DRY DENIES PAIN LCTA BOWEL SOUNDS X4
[2019-06-03 20:00] VITALS: BP 110/71
[2019-06-04 00:27] VITALS: BP 123/81
--- NOTE | 2019-06-04 04:18 | NUR ---
I have reviewed this patient and I concur with the Shift Assessment completed by the Licensed Practical Nurse today this shift.
[2019-06-04 04:30] VITALS: BP 106/53
[2019-06-04 05:30] LABS: BASOPHILS 0.6 % (0-2); EOSINOPHILS 4.4 % (0-7); HEMATOCRIT 31.9 % (42.0-54.0); HEMOGLOBIN 10.1 g/dL (13.5-17.5); IMMATURE GRANULOCYTES 0.6 % (0-5); LYMPHOCYTES 22.9 % (15-50); MCH 29.6 pg (26.0-34.0); MCHC 31.7 g/dL (31.0-37.0); MCV 93.5 fL (80.0-100.0); MEAN PLATELET VOLUME 11.3 fL (7.4-10.4); MONOCYTES 9.4 % (2-11); NEUTROPHILS 62.1 % (40-80); PLATELET COUNT 176 10x3/uL (130-400); RBC 3.41 10x6/uL (4.20-6.10); RDW 12.9 % (11.5-14.5); WBC 3.6 10x3/uL (4.8-10.8)
[2019-06-04 05:59] LABS: ANION GAP 16.8 mmol/L (8-16); CALCIUM 8.2 mg/dL (8.5-10.1); CREATININE - SERUM 11.7 mg/dL (0.6-1.3); POTASSIUM - SERUM 4.8 mmol/L (3.5-5.1)
--- NOTE | 2019-06-04 07:50 | NUR ---
REPORT RECIEVED. PT WALKING HALLS. RR EVEN AND UNLBAORED. HE HAS A R HAND PIV THAT IS SL. WILL CTM
[2019-06-04 08:32] VITALS: BP 134/89
--- NOTE | 2019-06-04 10:06 | MORECARE ---
CASE MANAGEMENT DISCHARGE SUMMARY PATIENT: SHILA JUARES UNIT: [id number] ADM DATE: 06/01/19 AGE: 49 : 66 SEX: M ROOM/BED: D.2107 AUTHOR: CHACORTA WELLS PHYSICIAN: REFERRING PHYSICIAN: TROY LOPEZ MD DATE OF SERVICE: 06/04/19 Discharge Plan Patient Name: SHILA JUARES Facility: [facility]:[place] : 1970 Planned Disposition: Home Anticipated Discharge Date: 06/04/19 Discharge Date: Expected LOS: 3 Initial Reviewer: [email or web address] Initial Review Date: 06/04/2019 Generated: 06/04/19 11:06 am DCPIA - Discharge Planning Initial Assessment Updated by [email or web address]: Farzad Fry on 06/04/19 10:04 am * Is the patient Alert and Oriented? Yes * How many steps to enter\exit or inside your home? NONE * PCP DR. LOPEZ * Pharmacy [facility] * Preadmission Environment Home with Family * ADLs Independent * Equipment CPAP * Other Equipment [facility] - PROVIDER * List name and contact numbers for known caregivers / representatives who currently or will assist patient after discharge: TARIQ WATKINS, SPOUSE, * Verbal permission to speak to the caregivers and representatives has been obtained from the patient. N/A * Community resources currently utilized Other * Please name any agencies selected above. [facility], [facility], MWF, 0600AM, DRIVES SELF TO AND FROM DIALYSIS * Additional services required to return to the preadmission environment? No * Can the patient safely return to the preadmission environment? Yes * Has this patient been hospitalized within the prior 30 days at any hospital? No Coverage Notice Reviewer: [id number] - Farzad Fry Notice Issued Date-Time: 06/04/2019 9:10 Notice Type: IM Discharge Notice Notice Delivered To: Patient Relationship to Patient: Supervisor Contact Lens Name: Delivery Method: HAND - Hand Delivered Magdalena Days: Prior Verbal Notification: Recipient Understood Notice: Yes Recipient Signature: Yes Med Rec Note Co-signed by Attending: Coverage Notice Comment: Patient Name: SHILA JUARES Page [phone] at 1006 All edits/amendments must be made on the electronic document DICTATION DATE: 06/04/191004 PUNCHING MACHINE OPERATOR: MARIKA 06/04/191004 RPT#: [id number] DE DATE: STATUS: ADM IN [facility] [address] [place] [address] END OF REPORT
--- NOTE | 2019-06-04 10:15 | MORECARE ---
CASE MANAGEMENT DISCHARGE SUMMARY PATIENT: SHILA JUARES UNIT: [id number] ADM DATE: 06/01/19 AGE: 49 : 66 SEX: M ROOM/BED: D.2105 AUTHOR: RUSSELL,DOC PHYSICIAN: REFERRING PHYSICIAN: TROY LOPEZ MD DATE OF SERVICE: 06/04/19 Discharge Plan Patient Name: SHILA JUARES Facility: [facility]:[place] : 1970 Planned Disposition: Home Anticipated Discharge Date: 06/04/19 Discharge Date: Expected LOS: 3 Initial Reviewer: [email or web address] Initial Review Date: 06/04/2019 Generated: 06/04/19 11:15 am Comments DCP- Discharge Planning Updated by [email or web address]: Farzad Fry on 06/04/19 9:[address] Patient Name: SHILA JUARES Admission Status: ER Accout number: [id number] Admission Date: 06-01-2019 : 1970 Admission Diagnosis: Attending: TROY LOPEZ Current LOS: 3 Anticipated DC Date: 06-04-2019 Planned Disposition: Home Primary Insurance: MEDICARE A & B Discharge Planning Comments: CM MET WITH PT IN ROOM TO DISCUSS DISCHARGE PLANNING AND NEEDS. PT REPORTS LIVING AT HOME INDEPENDENTLY WITH SPOUSE. PT HAS CPAP FROM [facility]. PT HAS NO OUTSIDE SERVICES ASSISTING IN THE HOME. PT DRIVES SELF TO [facility], MWF DIALYSIS AT 0600 AM. CM DISCUSSED AVAILABILITY OF HOME HEALTH, REHAB SERVICES AND MEDICAL EQUIPMENT. PT DENIES DISCHARGE NEEDS, REPORTS HIS WILL PICK HIM UP FOR DISCHARGE HOME. IMPORTANT MESSAGE FROM MEDICARE PROVIDED AND EXPLAINED. Media Relations Director: Farzad Fry DCPIA - Discharge Planning Initial Assessment Updated by [email or web address]: Farzad Fry on 06/04/19 10:04 am * Is the patient Alert and Oriented? Yes * How many steps to enter\exit or inside your home? NONE * PCP DR. LOPEZ * Pharmacy [facility] * Preadmission Environment Home with Family * ADLs Independent * Equipment CPAP * Other Equipment [facility] - PROVIDER * List name and contact numbers for known caregivers / representatives who currently or will assist patient after discharge: TARIQ WATKINS, SPOUSE, * Verbal permission to speak to the caregivers and representatives has been obtained from the patient. N/A * Community resources currently utilized Other * Please name any agencies selected above. [facility], [facility], MWF, 0600AM, DRIVES SELF TO AND FROM DIALYSIS * Additional services required to return to the preadmission environment? No * Can the patient safely return to the preadmission environment? Yes * Has this patient been hospitalized within the prior 30 days at any hospital? No Coverage Notice Reviewer: [email or web address] Dilma Fry Notice Issued Date-Time: 06/04/2019 9:10 Notice Type: IM Discharge Notice Notice Delivered To: Patient Relationship to Patient: Supervisor Public Health Nursing Name: Delivery Method: HAND - Hand Delivered Magdalena Days: Prior Verbal Notification: Recipient Understood Notice: Yes Recipient Signature: Yes Med Rec Note Co-signed by Attending: Coverage Notice Comment: Last DP export: 06/04/19 9:06 Patient Name: SHILA JUARES Page [phone] at 1015 All edits/amendments must be made on the electronic document DICTATION DATE: 06/04/19 1015 PASTRY WRAPPER: MARIKA 06/04/19 1015 RPT#: [id number] DC DATE: STATUS: ADM IN [facility] [address] [place] [address] END OF REPORT
[2019-06-04] MEDS ORDERED: Levaquin PO (10:30)
[2019-06-04] MEDS ORDERED: FLAGYL250 MG PO (10:31)
--- NOTE | 2019-06-04 11:04 | NUR ---
Nutrition Follow-up: Eating well. Denies N/V/C/D. Diet: Renal PO intake: ~75% this AM No new wt Last BM: 06/04 Labs noted: Ca 8.2, PO4 8.0, K+ 4.8 Meds noted: Renvela -Continue current diet as tolerated. -RD following.
[2019-06-04 11:51] VITALS: BP 139/85
--- NOTE | 2019-06-04 12:12 | NUR ---
CALLED DIALYSIS AT 1145 AND SPOKE TO HAILE. SHE TOLD ME THAT IT WOULD BE ANOTHER HOUR BEFORE SHE CALLS FOR PT. THAT SHE HAD TO FINISH CLEANING AND DO PAPERWORK. PT HAS REQUESTED WE DC HIM BECAUSE HE HAS CALLED HIS DIALYSIS CLINIC AND GOT HIMSELF A CHAIR.
[2019-06-04] MEDS ORDERED: LEVOFLOXACIN500 MG PO (12:13)
--- NOTE | 2019-06-04 12:33 | NUR ---
RECEIVED NOTICE FROM BEDSIDE NURSE THAT THE DIALYSIS UNIT IS NOW SAYING THEY CAN'T GET THE PATIENT FOR ANOTHER HOUR TO AND HOUR AND A HALF BECAUSE SHE HAD PAPERWORK AND SOMETHING ELSE TO DO. HAILE (DIALYSIS NURSE) WAS SPOKEN TO AROUND 0900 AND IT WAS EXPLAINED TO HER BY TERESA VAUGHN RN CM THAT THIS PATIENT IS TO RECEIVE HD AND DISCHARGE HOME AND WE NEEDED THEM TO BE FIRST. HAILE STATED AT THAT TIME IT WOULD BE AN HOUR TO AN HOUR AND HALF BEFORE SHE COULD GET PATIENTS. I CALLED AND SPOKE WITH CARLTON JONES, DIALYSIS COORDINATOR TO SEE WHO WE NEEDED TO CALL AND SPEAK TO ABOUT THIS AND SHE HAD JORGE BOWLING RN ESCALATION ENGINEER NEXT TO HER AND I SPOKE TO HER ABOUT THIS. I WAS INSTRUCTED TO CALL HER IF WE HAVE PROBLEMS LIKE THIS IN THE FUTURE. I DID VERIFY HER NUMBER AND EXPLAINED I TRIED TO CONTACT HER LAST WEEK OVER THE SAME THING WITH PATIENTS (THIS BEING ONE OF THEM). WHEN CONVERSATION ENDED, THEY WILL BE UP CALLING FOR PATIENTS HERE SHORTLY. PLEASE NOTE THAT THIS PATIENT HAS CALLED HIS UNIT AND GOT HIMSELF A CHAIR TIME FOR TODAY BECAUSE THEY COULDN'T FIT HIM IN DOWNSTAIRS AND HE NEEDED TO LEAVE.
--- NOTE | 2019-06-04 13:02 | NUR ---
DC PAPERWORK GONE OVER AND SIGNED WITH PT. ALL QUESTIONS ANSWERED. PIV REMOVED, CATH TIP FULLY INTACT. ALL VALUBLES REMOVED FROM ROOM. PT WALKED HIMSELF TO DIALYSIS @ [facility].
--- NOTE | 2019-06-05 07:16 | DS ---
PATIENT:SHILA WHALEN :66 MEDICAL RECORD: [id number] DISCHARGE SUMMARY ADMISSION DATE: 06/01/19 DISCHARGE DATE: 06/04/19 HISTORY: Mr. Whalen is a 49-year-old white male with end-stage renal disease on chronic dialysis, recent prostate resection for carcinoma of the prostate. He has been stable, admitted with left lower quadrant abdominal pain, felt to be diverticular in origin. HOSPITAL COURSE: CT did not reveal any evidence of abscess, begun on parenteral antibiotic therapy and he promptly improved. Seen by Dr. Chin, who felt that medical therapy was indicated at this time. He received 4 days of IV antibiotics and was switched to oral antibiotics and will continue oral antibiotics as an outpatient. He was totally asymptomatic with normal stools and pain resolution. At the time of discharge, white count had normalized. DISCHARGE DIAGNOSES: 1. Acute diverticulitis, improved. 2. End-stage renal disease, chronic dialysis. 3. Recent carcinoma of the prostate with resection. 4. Chronic erythropoietin anemia. PLAN: The patient will be discharged today. I will see him in the dialysis unit in 1-2 weeks. He will resume his renal diet. He will receive Flagyl 250 q.i.d. times 5 days, Cipro 250 b.i.d. for 5 days. He will resume Epogen as an outpatient, Renvela 800 mg t.i.d. He will continue lisinopril 40 daily, Apresoline 50 t.i.d., amlodipine 10 daily. He will continue on his Eliquis 5 mg b.i.d., Coreg 12.5 b.i.d., Protonix 40 mg daily. He will follow up and will see us with the nurse practitioners in the dialysis unit. TRANSINT:[id number] Voice Confirmation ID: [id number] DOCUMENT ID: [id number] TROY LOPEZ MD at 0716 CC: [id number] DICTATION DATE: 06/04/19806 GIFTED PROGRAM TEACHER: 06/04/19903 DIS IN 06/04/19 [id number] [place] [address]
== END 2019-06-04 13:03 | disposition home or self-care (01) | DRG 391 ==
LOC: D.ER 15:59 → D.M2 19:12
PROVIDERS: Emergency Medicine; Internal Medicine Nephrology; ADMIT Internal Medicine Nephrology; ATTEND Internal Medicine Nephrology
PROC: 5A1D70Z Performance of Urinary Filtration, Intermittent, Less than 6 Hours Per Day (ICD-10-PCS; principal; 2019-06-02)
DX: K57.32 Diverticulitis of large intestine without perforation or abscess without bleeding (principal); N18.6 End stage renal disease; I12.0 Hypertensive chronic kidney disease with stage 5 chronic kidney disease or end stage renal disease; N25.81 Secondary hyperparathyroidism of renal origin; Z99.2 Dependence on renal dialysis; D63.1 Anemia in chronic kidney disease; E87.5 Hyperkalemia; G89.4 Chronic pain syndrome; Z87.891 Personal history of nicotine dependence; Z85.46 Personal history of malignant neoplasm of prostate

== ENCOUNTER → 2019-06-27 10:45 | Outpatient (CLI) | payer MEDICARE, BC ==
[2019-06-02 14:51] VITALS: BMI 35.6
[~2019-06-27 10:45] MED LIST changes: +FLAGYL250 MG PO; +LEVOFLOXACIN500 MG PO; +Levaquin PO
== END | disposition home or self-care (01) ==
LOC: D.CT 10:45
PROVIDERS: ATTEND Nurse Practitioner Family
DX: J32.9 Chronic sinusitis, unspecified (principal)

== ENCOUNTER → 2020-12-01 14:22 | Outpatient (CLI) | payer MEDICARE, BC ==
[2020-04-22 11:45] VITALS: BMI 33.3
[~2020-12-01 14:22] MED LIST changes: +CALCIUM CITRATE PO; +OMEPRAZOLE40 MG PO; +TEMAZEPAM30 MG PO
== END | disposition home or self-care (01) ==
LOC: D.RAD 14:22
PROVIDERS: ATTEND Internal Medicine
DX: R06.02 Shortness of breath (principal)